=== PATIENT | female | born 2005 | race Caucasian/White ===

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

== ENCOUNTER 2024-06-11 20:43 | Emergency (ER) | payer MEDICAID, SELFPAY ==
[2024-06-11 20:54] VITALS: BP 105/72; PULSE 82; RESP 20; TEMP 36.7; O2SAT 99; BMI 19.0
--- NOTE | 2024-06-11 21:06 | ED.GENADULT ---
HPI - General Adult General Chief complaint: Ear/Nose/Throat Problem Stated complaint: Had strep-throat swollen/painful body hives Time Seen by Provider: 06/11/24 20:48 History of Present Illness HPI narrative: CC: Swollen Lymph Nodes, Sore Throat pt. diagnosed with strep 3 weeks ago. started having throat issues yesterday. also developed generalized rash yesterday. denies trouble breathing, n/v, diarrhea. 19-year-old young woman presenting to the emergency department with concern of a rash and new increased angle of jaw/teeth area bilateral pain. Here with friend or so and I believe mom. Reportedly is about to ?asphyxiate? with attempted swallowing and can not ?regulate her body temperature?. Has been with shaking chills recently. Diagnosed on 05/27/2024 with strep pharyngitis and treated with 10 day course of amoxicillin. Yesterday after exiting the shower had a a total body speckling rash as demonstrated in photos. Is not actually having any trouble breathing. Pain as above. Worried about abscess I think. Has been trying to treat with ibuprofen but can not as has not been eating and upset stomach. Otherwise acetaminophen. Did take diphenhydramine for this rash and this may have helped. Related Data Home Medications ?Medication ?Instructions ?Recorded ?Confirmed etonogestrel 68 mg subdermal 1 implant subdermal ONCE 05/27/24 06/11/24 implant (Nexplanon) Previous Rx's ?Medication ?Instructions ?Recorded hydroxyzine HCl 25 mg tablet 25 mg PO TID PRN insomnia, anxiety 04/15/23 #90 tabs aripiprazole 10 mg tablet (Abilify) 10 mg PO QHS #90 tabs 05/24/23 dextroamphetamine-amphetamine ER 25 mg PO QAM #90 caps 05/24/23 25 mg 24hr capsule,extend release (Adderall XR) Allergies Allergy/AdvReac Type Severity Reaction Status Date / Time No Known Drug Allergies Allergy Verified 06/11/24 20:57 Review of Systems Status of ROS: Reports: 6 or more systems reviewed and unremarkable except as noted in History and below [facility] Medical History History of marijuana use ?F12.91 - Cannabis use, unspecified, in remission (ICD-10) Bipolar disorder ?F31.9 - Bipolar disorder, unspecified (ICD-10) Personal history of nonsuicidal self-injury ?Z91.52 - Personal history of nonsuicidal self-harm (ICD-10) Passive suicidal ideations ?R45.851 - Suicidal ideations (ICD-10) PTSD (post-traumatic stress disorder) ?F43.10 - Post-traumatic stress disorder, unspecified (ICD-10) Insomnia ?G47.00 - Insomnia, unspecified (ICD-10) Borderline personality disorder ?F60.3 - Borderline personality disorder (ICD-10) ADHD ?F90.9 - Attention-deficit hyperactivity disorder, unspecified type (ICD-10) Medication management ?Z79.899 - Other ad terminal makeup operator (current) drug therapy (ICD-10) Underweight ?R63.6 - Underweight (ICD-10) Panic attacks ?F41.0 - Panic disorder [episodic paroxysmal anxiety] (ICD-10) Depression ?F32.A - Depression, unspecified (ICD-10) Anxiety ?F41.9 - Anxiety disorder, unspecified (ICD-10) Social History Non-prescribed substance use: denies use Little interest or pleasure in doing things: several days Feeling down, depressed, or hopeless: more than half the days Exam Narrative: Exam Narrative: Skin is warm and dry. Faint speckling rash notable particularly on her back at this point. Central line tattoo as well well. Breathing easily. There is no stridor. Lungs are clear. Heart in regular rate and rhythm. Oropharynx is without erythema and without exudate or swelling. Dentition looks good. There are prominent bilateral very upper cervical lymph nodes which are rather tender to palpation. Const: Vital Signs, click to edit/add: Vital Signs - 24 hr 06/11/24 20:54 Temperature 98.0 F Pulse Rate [Right Pulse Oximeter] 82 Respiratory Rate 20 Blood Pressure [Ri ght Upper Arm] 105/72 Pulse Oximetry 99 Oxygen Delivery Me thod Room Air Documenting provider has reviewed patient's vital signs: yes Course Vital Signs Vital signs: Initial Vital Signs Temperature 98.0 F 06/11/24 20:54 Temperature Source Temporal Artery Scan 06/11/24 20:54 Pulse Rate 82 06/11/24 20:54 Respiratory Rate 20 06/11/24 20:54 Blood Pressure 105/72 06/11/24 20:54 Blood Pressure Mean 83 06/11/24 20:54 Blood Pressure Position Sitting 06/11/24 20:54 Pulse Oximetry 99 06/11/24 20:54 Oxygen Delivery Method Room Air 06/11/24 20:54 Vital Signs Temperature 98.0 F 06/11/24 20:54 Pulse Rate 82 06/11/24 20:54 Respiratory Rate 20 06/11/24 20:54 Blood Pressure 105/72 06/11/24 20:54 Pulse Oximetry 99 06/11/24 20:54 Oxygen Delivery Method Room Air 06/11/24 20:54 Temperature 98.0 F 06/11/24 20:54 Pulse Rate 82 06/11/24 20:54 Respiratory Rate 20 06/11/24 20:54 Blood Pressure 105/72 06/11/24 20:54 Pulse Oximetry 99 06/11/24 20:54 Oxygen Delivery Method Room Air 06/11/24 20:54 Medications Administered Medications: Discontinued Medications Generic Name Dose Route Start Last Admin Trade Name Freq PRN Reason Stop Dose Admin Sodium Chloride 500 mls @ 1,000 mls/hr 06/11/24 21:19 06/11/24 22:31 0.9 % Sodium Chloride 500 Ml IV 06/11/24 21:48 Infused .Q30M ONE Infusion Sodium Chloride 500 mls @ 1,000 mls/hr 06/11/24 22:08 06/11/24 22:31 0.9 % Sodium Chloride 500 Ml IV 06/11/24 22:37 1,000 mls/hr .Q30M ONE Administration Ketorolac Tromethamine 30 mg 06/11/24 21:19 06/11/24 21:58 Ketorolac 30 Mg/Ml Inj IVP 06/11/24 21:20 30 mg ONCE ONE Administration Lidocaine/Aluminum/Magnesium/Simeth 30 ml 06/11/24 22:31 06/11/24 22:35 Gi Cocktail (Visc Lido/Antacid) 30 Ml PO 06/11/24 22:32 30 ml ONCE ONE Administration Methylprednisolone Sodium Succinate 80 mg 06/11/24 21:19 06/11/24 21:58 Methylprednisolone Sod Succ 40 Mg/Ml IVP 06/11/24 21:20 80 mg ONCE ONE Administration Medical Decision Making MDM Narrative Medical decision making narrative: Does not appear to be having any trouble managing secretions. Just isn't feeling very well and complaining of pain. I think this inflamed lymph nodes is referred into her back teeth that she describes in her jaw. IV hydration likely help. Can rescreen DNA for strep though only helpful probably if negative result. I do not think there is an abscess here. DNA strep test is positive. Typically I would think by now would have clear to but it is possible that this is still a lingering positive from the prior testing. Has normal white count, labs are reassuring. However with symptoms, possible strep related rash, inflamed residual lymph nodes, it would appear prudent to treat. Did receive Solu-Medrol in ketorolac here in the emergency department. Will be continued with course of cephalexin and prednisone. Did give a GI cocktail here in the emergency department See patient discharge plan for further discussion Medical Records Medical records reviewed: Yes I reviewed the patient's medical records Lab Data Lab results reviewed: Yes I reviewed the patient's lab results Labs: Lab Results 06/11/24 Range/Units 21:35 WBC 4.68 (4.50-11.00) K/uL RBC 3.89 L (4.00-5.20) m/uL Hgb 12.1 (12.0-16.0) gm/dL Hct 35.7 (33.0-51.0) % MCV 92 (80-100) fL MCH 31 (26-34) pg MCHC 34 (32-36) gm/dL RDW Coeff of Eladio 12.1 (11.5-15.5) % Plt Count 194 (140-440) K/uL Neut % (Auto) 45.0 (42.0-72.0) % Lymph % (Auto) 44.4 H (20-44) % Benson % (Auto) 9.4 (0.0-11.0) % Eos % (Auto) 0.6 (0.0-7.0) % Baso % (Auto) 0.4 (0.0-3.0) % Neut # (Auto) 2.10 (1.7-7.0) K/uL Lymph # (Auto) 2.10 (0.90-2.90) K/uL Benson # (Auto) 0.40 (0.00-0.90) K/UL Eos # (Auto) 0.03 (0.00-0.50) K/uL Baso # (Auto) 0.02 (0.00-0.30) K/uL Abs Immat Gran (auto) 0.01 (0.00-0.30) K/uL Imm/Tot Granulo (auto) 0.2 % Diff Slide Review Acceptable Review (Acceptable) C-Reactive Protein 1.1 H (0.5-1.0) mg/dL Group A Strep DNA DETECTED A (Not Detectd) Discharge Plan Discharge Clinical Impression: Pharyngitis, Cervical adenopathy, Rash, Strep pharyngitis Patient Disposition: Home w/ Parent or Adult Condition: Improved Additional Instructions: Continue to focus on hydration. Yes there are [id number] oropharyngeal sprays that might be helpful with sore throat -- also anesthetic lozenges or sprays like Sucrets or Chloraseptic. With a little food I would still consider ibuprofen. Otherwise up to 1000 mg of acetaminophen per dose. Might take famotidine for acid reduction or liquid antacid/anti-gas medication. Hopeful this course of prednisone will be helpful. This can be a little stimulating. Prescribing a course of cephalexin antibiotic and prednisone from [facility]. Consider boiling your toothbrush for 3 minutes as discussed and then every 3 days over the next 10 days. Prescriptions: No Action aripiprazole [Abilify] 10 mg tablet 10 mg PO QHS Qty: 90 0RF dextroamphetamine-amphetamine [Adderall XR] 25 mg capsule,extended release 24hr 25 mg PO QAM Qty: 90 0RF Nexplanon 68 mg implant 1 implant subdermal ONCE Rx Instructions: as a single dose hydroxyzine HCl 25 mg tablet 25 mg PO TID PRN (Reason: insomnia, anxiety) Qty: 90 3RF Follow Up/Referrals: Mamie Kramer PA-C [Primary Care Provider] - Stand Alone Forms: [facility] Info Instructions
--- OUTSIDE RECORDS SUMMARY | 2024-06-11 21:26 | XMS_ITS ---
Author Organization [facility] Address [address] [place] [address] Care Team Providers Care Director Custom Name Role Phone Unavailable Unavailable Unavailable Surgery Details Not on file Complications Check Surgery Details section. Procedure Estimated Blood Loss Check Surgery Details section. Procedure Findings Check Surgery Details section. Procedure Specimens Taken Check Surgery Details section.
--- OUTSIDE RECORDS SUMMARY | 2024-06-11 21:26 | XMS_ITS | Clinical Summary ---
Author Organization [facility] Address [address] [place] [address] Care Team Providers Care Telegraph Operator Name Role Phone None Reported, Pcp Primary Care Provider Unavail able Source Comments Patient records contain information from all sites at [facility]. For routine questions regarding patient records, call [phone] during business hours, M-F 8:00 AM - 5:00 PM Central Time. Record requests for emergency care only can be directed to [phone] at any time.[facility] Medications No known medications Active Problems Problem Noted Date Diagnosed Date Problem Related To Social Environment Unspecifie d 12/22/2022 Anxiety 12/22/2022 Suicide Ideation 12/22/2022 Social History Tobacco Use Types Packs/Day Years Used Date Smoking Tobacco: Never Assessed Dental Answer Date Recorded Dental: Regular Dentist Unknown 12/23/19 23 Comments Unknown Sex and Gender Information Value Date Recorded Sex Assigned at Not on file Legal Sex Female 6:34 PM CDT Gender Identity Not on file Sexual Orientation [...] - Plan of Treatment Not on file Insurance ARE Care Teams Telegraph Operator Relationship Specialty Start Date End Date None Reported, Pcp PCP - General Family Medicine 12/22/22
--- OUTSIDE RECORDS SUMMARY | 2024-06-11 21:26 | XMS_ITS | Referral Summary ---
Author Organization [facility] Address [address] [place] [address] Care Team Providers Care Support Specialist Name Role Phone None Reported, Pcp Primary Care Provider Unavail able Source Comments Patient records contain information from all sites at [facility]. For routine questions regarding patient records, call [phone] during business hours, M-F 8:00 AM - 5:00 PM Central Time. Record requests for emergency care only can be directed to [phone] at any time.[facility] Medications No known medications Active Problems Problem [...] Not on file Insurance ARE Care Teams Support Specialist Relationship Specialty Start Date End Date None Reported, Pcp PCP - General Family Medicine 12/22/22
[2024-06-11 21:47] LABS: Basophils Absolute Auto 0.02 K/uL (0.00-0.30); Basophils Percent Auto 0.4 % (0.0-3.0); Eosinophils Absolute Auto 0.03 K/uL (0.00-0.50); Eosinophils Percent Auto 0.6 % (0.0-7.0); Hematocrit 35.7 % (33.0-51.0); Hemoglobin* 12.1 gm/dL (12.0-16.0); Immature Granulocytes Abs Auto 0.01 K/uL (0.00-0.30); Immature Granulocytes Pct Auto 0.2 %; Lymphocytes Percent Auto 44.4 % (20-44); Mean Corpuscular HGB Conc 34 gm/dL (32-36); Mean Corpuscular Hemoglobin 31 pg (26-34); Mean Corpuscular Volume 92 fL (80-100); Monocytes Percent Auto 9.4 % (0.0-11.0); Platelet Count* 194 K/uL (140-440); RDW Coefficient of Variation % 12.1 % (11.5-15.5); Red Blood Count 3.89 m/uL (4.00-5.20); White Blood Count* 4.68 K/uL (4.50-11.00)
[2024-06-11] MEDS: 0.9 % SODIUM CHLORIDE 500 ML 500 ML 1000 ML IV ×2 (21:57→22:31)
[2024-06-11 21:58] LABS: C Reactive Protein* 1.1 mg/dL (0.5-1.0)
[2024-06-11] MEDS: KETOROLAC 30 MG/ML inj IVP (21:58)
[2024-06-11] MEDS: METHYLPREDNISOLONE SOD SUCC 40 MG/ML 80 MG IVP (21:58)
[2024-06-11 22:13] LABS: Strep A DNA Probe* DETECTED (Not Detectd)
[2024-06-11 22:30] LABS: Slide Review Acceptable Review (Acceptable); Slide Review Reflex Yes
[2024-06-11] MEDS: GI COCKTAIL (VISC LIDO/ANTACID) 30 ML PO (22:35)
== END 2024-06-11 23:07 | disposition home or self-care (01) ==
PROVIDERS: Emergency Provider Family Medicine; PCP Physician Assistant Medical
DX: R59.9 Enlarged lymph nodes, unspecified (principal); J02.0 Streptococcal pharyngitis
CPT/HCPCS: 36415; 85025; 86140; 87651; 96374; 96375; 99284; A9270; J1885; J2919; J7030